=== PATIENT | female | born 1950 | race African-American/Black ===

== ENCOUNTER 2018-08-22 10:56 | Outpatient (CLI) | payer MEDICARE ==
[~2018-08-22] VITALS: Ht 170.2 cm; Wt 65.3 kg
[2018-08-22 14:42] VITALS: BP 109/70
[2018-08-22] MEDS ORDERED: JANUMET 50-5001 EACH ORAL (15:31)
--- NOTE | 2018-08-22 18:30 | Consultation ---
DATE OF CONSULTATION: 08/22/2018 CONSULTING PHYSICIAN: Abdiaziz Lazar M.D. CHIEF COMPLAINT: Painless jaundice. HISTORY OF PRESENT ILLNESS: This is a very pleasant 68-year-old female, presented with the complaint of weakness, weight loss, and jaundice. She had an MRCP done, which showed no evidence of biliary duct dilatation. Ultrasound also showed no evidence of biliary duct dilatation. Hepatitis panel has been negative. The patient was referred to us for ERCP or endoscopic ultrasound. PAST MEDICAL HISTORY: Diabetes. PAST SURGICAL HISTORY: Right fallopian tube removal. MEDICATIONS: Januvia. ALLERGIES: No known drug allergies. MEDICATIONS: Please see medication reconciliation list. FAMILY HISTORY: No family history of malignancy. SOCIAL HISTORY: Denies any tobacco, alcohol, or drug abuse. PHYSICAL EXAMINATION: VITAL SIGNS: Temperature 98.2, pulse is 98, respiration , and blood pressure is 109/70. HEENT: Normocephalic and atraumatic. Scleral icterus. NECK: Supple. No obvious evidence of lymphadenopathy. CARDIOVASCULAR: Regular rate and rhythm. Plus S1 and S2. LUNGS: Decreased breath sounds bilaterally based on supine exam. ABDOMEN: Soft and nontender. No rebound. No guarding. No peritoneal sign. EXTREMITIES: No cyanosis. No clubbing. No edema. LABORATORY DATA: AST is 816, ALT of 1017, and alkaline phosphatase 228. Total bilirubin is 19.4. ASSESSMENT AND PLAN: This is a 68-year-old female with fatigue, jaundice, and abnormal liver function tests, highly suspicious for autoimmune hepatitis. Plan to order YEYO, IgG, SMA and we will order liver biopsy. The patient to come back right after the for treatment. I want to thank, Dr. Chris Boss your kind referral. Abdiaziz Lazar M.D. DR: WES JOB#: [id number] CC:
== END 2018-08-22 11:26 | disposition home or self-care (01) ==
LOC: PAN 10:56
DX: R17 Unspecified jaundice (principal); R53.83 Other fatigue; R94.5 Abnormal results of liver function studies
CPT/HCPCS: 36415; 82784; 86039; 86235; G0463; 99202

== ENCOUNTER 2018-08-30 13:41 | Outpatient (CLI) | payer MEDICARE, BC ==
[~2018-08-30 13:41] MED LIST: JANUMET 50-5001 EACH ORAL
--- NOTE | 2018-08-30 14:19 | General Progress Note ---
Assessment/Plan Assessment/Plan autoimmune hepatitis start prednisone and imuran RTC next week Subjective ROS Limited/Unobtainable: Yes Allergies: Coded Allergies: No Known Allergies (Unverified , 08/22/18) Objective General Appearance: alert EENT: normal ENT inspection, scleral icterus Neck: normal alignment Cardiovascular: normal rate Respiratory/Chest: lungs clear Abdomen: normal bowel sounds, non tender, soft Extremities: non-tender Abdiaziz Lazar MD Aug 30, 2018 14:19
[2018-08-30 15:38] VITALS: BP 105/63
[2018-09-07] MEDS ORDERED: PREDNISONE20 MG ORAL (09:22)
[2018-09-07] MEDS ORDERED: MERCAPTOPURINE50 MG PO (09:22)
== END 2018-08-30 14:11 | disposition home or self-care (01) ==
LOC: PAN 13:41
DX: K75.4 Autoimmune hepatitis (principal)
CPT/HCPCS: 99212

== ENCOUNTER → 2018-09-06 | Outpatient (CLI) | payer MEDICARE, BC ==
[~2018-09-06] MED LIST changes: +MERCAPTOPURINE50 MG PO; +PREDNISONE20 MG ORAL
--- NOTE | 2018-09-06 14:50 | General Progress Note ---
Assessment/Plan Problem List: (1) auto immune hepatitis Assessment/Plan on prednisone and imuran labs pending pathology c/w grade 3/4 fibrosis draw labs today RTC one week Subjective ROS Limited/Unobtainable: Yes Allergies: Coded Allergies: No Known Allergies (Unverified , 08/22/18) Subjective feeling much better Objective General Appearance: alert EENT: normal ENT inspection Neck: supple Cardiovascular: normal rate Respiratory/Chest: lungs clear Abdomen: normal bowel sounds, non tender, soft Extremities: non-tender Abdiaziz Lazar MD Sep 06, 2018 14:50
[2018-09-06 15:51] LABS: BASOPHILS % (AUTO) 0.9 % (0.0-2.0); EOSINOPHILS % (AUTO) 0.1 % (0.0-3.0); HEMATOCRIT 39.7 % (37.0-47.0); HEMOGLOBIN 12.6 G/DL (12.0-16.0); LYMPHOCYTES % (AUTO) 17.2 % (20.0-45.0); MEAN CORPUSCULAR VOLUME 94 FL (80-99); MONOCYTES % (AUTO) 3.3 % (1.0-10.0); NEUTROPHILS % (AUTO) 78.5 % (45.0-75.0); PLATELET COUNT 251 K/UL (150-450); RED BLOOD COUNT 4.24 M/UL (4.20-5.40); WHITE BLOOD COUNT 6.3 K/UL (4.8-10.8)
[2018-09-06 15:59] LABS: ALANINE AMINOTRANSFERASE 150 U/L (12-78); ALBUMIN/GLOBULIN RATIO 0.7 (1.0-2.7); ALKALINE PHOSPHATASE 336 U/L (46-116); ANION GAP 15 mmol/L (5-15); ASPARTATE AMINO TRANSFERASE 76 U/L (15-37); BILIRUBIN,TOTAL 5.5 MG/DL (0.2-1.0); BLOOD UREA NITROGEN 16 mg/dL (7-18); CALCIUM 9.3 MG/DL (8.5-10.1); CARBON DIOXIDE 23 MMOL/L (21-32); CHLORIDE 91 MMOL/L (98-107); CREATININE 1.2 MG/DL (0.55-1.30); POTASSIUM 5.5 MMOL/L (3.5-5.1); SODIUM 128 MMOL/L (136-145)
[2018-09-06 16:03] LABS: BILIRUBIN,DIRECT 4.7 MG/DL (0.0-0.3)
[2018-09-07 09:17] VITALS: BP 113/84
--- NOTE | 2018-09-07 09:20 | NUR ---
on lab result critical value Glucose 544. Dr Lazar was reported on 09/06/18 and pt was notified by Dr Lazar. Pt went to ER for further evaluation Addendum: 09/07/18 at 0921 by RIC PANTOJA Amended: Links added.
== END | disposition home or self-care (01) ==
LOC: PAN 13:16
DX: K75.4 Autoimmune hepatitis (principal); E11.9 Type 2 diabetes mellitus without complications
CPT/HCPCS: 36415; 80053; 82248; 85025; G0463; 99212

== ENCOUNTER 2018-09-13 13:35 | Outpatient (CLI) | payer MEDICARE, BC ==
--- NOTE | 2018-09-13 13:48 | General Progress Note ---
Assessment/Plan Problem List: (1) auto immune hepatitis (2) Gallstones ICD Codes: K80.20 - Calculus of gallbladder without cholecystitis without obstruction SNOMED: 599568455 (3) DM (diabetes mellitus) ICD Codes: E11.9 - Type 2 diabetes mellitus without complications SNOMED: 01448255 Assessment/Plan labs reviewed DM control per PMD [place] labs today RTC next week Subjective ROS Limited/Unobtainable: Yes Allergies: Coded Allergies: No Known Allergies (Unverified , 08/22/18) Objective General Appearance: alert EENT: normal ENT inspection, scleral icterus Neck: supple Cardiovascular: normal rate Respiratory/Chest: lungs clear Abdomen: normal bowel sounds, non tender, soft Extremities: non-tender Abdiaziz Lazar MD Sep 13, 2018 13:48
== END 2018-09-13 15:35 | disposition home or self-care (01) ==
LOC: PAN 13:35
DX: K80.20 Calculus of gallbladder without cholecystitis without obstruction (principal); E11.9 Type 2 diabetes mellitus without complications; K75.4 Autoimmune hepatitis
CPT/HCPCS: G0463

== ENCOUNTER 2018-09-20 13:06 | Outpatient (CLI) | payer MEDICARE, BC ==
--- NOTE | 2018-09-20 13:55 | General Progress Note ---
Assessment/Plan Problem List: (1) auto immune hepatitis (2) Gallstones ICD Codes: K80.20 - Calculus of gallbladder without cholecystitis without obstruction SNOMED: 546340234 (3) AIHA (autoimmune hemolytic anemia) ICD Codes: D59.1 - Other autoimmune hemolytic anemias SNOMED: 598067262 (4) DM (diabetes mellitus) ICD Codes: E11.9 - Type 2 diabetes mellitus without complications SNOMED: 08795459 Assessment/Plan prednisone 20 to 10 starting tomorrow cont Imuran RTC in 2 weeks for blood draw Subjective ROS Limited/Unobtainable: Yes Allergies: Coded Allergies: No Known Allergies (Unverified , 08/22/18) Objective General Appearance: alert EENT: scleral icterus Neck: supple Cardiovascular: normal rate Respiratory/Chest: lungs clear Abdomen: normal bowel sounds, non tender, soft Extremities: non-tender Abdiaziz Lazar MD Sep 20, 2018 13:55
[2018-09-20 15:56] VITALS: BP 124/83
[2018-09-20] MEDS ORDERED: JANUMET 50-1,01 EACH ORAL (15:56)
== END 2018-09-20 15:06 | disposition home or self-care (01) ==
LOC: PAN 13:06
DX: K75.4 Autoimmune hepatitis (principal); K80.20 Calculus of gallbladder without cholecystitis without obstruction; D59.1 Other autoimmune hemolytic anemias; E11.9 Type 2 diabetes mellitus without complications
CPT/HCPCS: G0463

== ENCOUNTER 2018-10-04 12:57 | Outpatient (CLI) | payer MEDICARE, BC ==
[~2018-10-04 12:57] MED LIST changes: +JANUMET 50-1,01 EACH ORAL
--- NOTE | 2018-10-04 13:13 | General Progress Note ---
Assessment/Plan Problem List: (1) auto immune hepatitis (2) DM (diabetes mellitus) ICD Codes: E11.9 - Type 2 diabetes mellitus without complications SNOMED: 85529762 (3) Gallstones ICD Codes: K80.20 - Calculus of gallbladder without cholecystitis without obstruction SNOMED: 866922530 (4) AIHA (autoimmune hemolytic anemia) ICD Codes: D59.1 - Other autoimmune hemolytic anemias SNOMED: 235615950 Assessment/Plan off prednisone labs reviewed repeat labs RTC 2 weeks Subjective ROS Limited/Unobtainable: Yes Allergies: Coded Allergies: No Known Allergies (Unverified , 08/22/18) Subjective feeling great Objective General Appearance: alert EENT: normal ENT inspection Neck: supple Cardiovascular: normal rate Respiratory/Chest: lungs clear Abdomen: normal bowel sounds, non tender, soft, hypoactive bowel sounds Extremities: non-tender Abdiaziz Lazar MD Oct 04, 2018 13:13
== END 2018-10-04 14:57 | disposition home or self-care (01) ==
LOC: PAN 12:57
DX: K80.20 Calculus of gallbladder without cholecystitis without obstruction (principal); D59.1 Other autoimmune hemolytic anemias; E11.9 Type 2 diabetes mellitus without complications; K75.4 Autoimmune hepatitis
CPT/HCPCS: 99212

== ENCOUNTER 2018-11-08 13:44 | Outpatient (CLI) | payer MEDICARE, BC ==
[2018-11-08 14:00] VITALS: BP 107/76
--- NOTE | 2018-11-08 14:16 | General Progress Note ---
Assessment/Plan Problem List: (1) Gallstones ICD Codes: K80.20 - Calculus of gallbladder without cholecystitis without obstruction SNOMED: 656989920 (2) AIHA (autoimmune hemolytic anemia) ICD Codes: D59.1 - Other autoimmune hemolytic anemias SNOMED: 274698093 (3) DM (diabetes mellitus) ICD Codes: E11.9 - Type 2 diabetes mellitus without complications SNOMED: 92927414 (4) auto immune hepatitis Assessment/Plan: cont imuran 50 mg plan EGD and colonoscopy for 11/30/2018 Subjective ROS Limited/Unobtainable: Yes Allergies: Coded Allergies: No Known Allergies (Unverified , 08/22/18) Objective General Appearance: alert EENT: normal ENT inspection Neck: supple Cardiovascular: normal rate Respiratory/Chest: lungs clear Abdomen: normal bowel sounds, non tender, soft Extremities: non-tender Abdiaziz Lazar MD November 08, 2018 14:16
== END 2018-11-08 15:44 | disposition home or self-care (01) ==
LOC: PAN 13:44
DX: K80.20 Calculus of gallbladder without cholecystitis without obstruction (principal); D59.1 Other autoimmune hemolytic anemias; E11.9 Type 2 diabetes mellitus without complications; K75.4 Autoimmune hepatitis

== ENCOUNTER 2019-01-01 09:24 | Day surgery (SDC) | payer MEDICARE, BC ==
--- NOTE | 2018-11-20 09:18 | Anethesia Preoperative Eval ---
Anesthesia Pre-op PMH/ROS General Date of Evaluation: November 20, 2018 Time of Evaluation: 09:15 Anesthesiologist: leisa ASA Score: ASA 3 Mallampati Score Class I : Soft palate, uvula, fauces, pillars visible Class II: Soft palate, uvula, fauces visible Class III: Soft palate, base of uvula visible Class IV: Only hard plate visible Mallampati Classification: Class II Surgeon: rossana Diagnosis: gerd Surgical Procedure: egd/colonoscopy Anesthesia History: none Social History: smoking - nonsmoker Family History: no anesthesia problems Allergies: Coded Allergies: No Known Allergies (Unverified , 08/22/18) Medications: see eMAR Patient NPO?: Yes Past Medical History Gastrointestinal/Genitourinary: Reports: other - gallstones, hepatitis, cirrhosis Endocrine: Reports: DM Hematology/Immune: Reports: anemia - auto immune hemolytic anemia, other Anesthesia Pre-op A/P Risk Assessment & Plan Assessment: asa3 Plan: Mell Green MD November 20, 2018 09:18
[2019-01-01] VITALS (8 sets, daily range): BP systolic 107–116; BP diastolic 58–82
[~2019-01-01] VITALS: Ht 170.2 cm; Wt 60.8 kg
[~2019-01-01 09:24] MED LIST changes: +Atropine Inj 1mg/10ml Syr IV PRN; +DiphenhydrAMINE 50mg/ml Inj IVP PRN; +Midazolam 2mg/2ml Inj IVP PRN; +fentaNYL 100 mcg/2 mL IV PRN
[2019-01-01] MEDS ORDERED: fentaNYL 100 mcg/2 mL IV ONE ×2 (09:25→12:00)
[2019-01-01] MEDS ORDERED: Midazolam 2mg/2ml Inj ONE ×2 (09:25→12:00)
[2019-01-01] MEDS ORDERED: AZATHIOPRINE50 MG PO (09:59)
[2019-01-01] MEDS ORDERED: LISINOPRIL5 MG ORAL (09:59)
--- NOTE | 2019-01-01 10:19 | Short Stay Surgery H&P ---
History of Present Illness History of Present Illness Chief Complaint see office note HPI Li Quiroz is a 68 year old female who was admitted on for Gerd,Cirrhosis, Abdominal Pain Patient History Allergies: Coded Allergies: No Known Allergies (Unverified , 08/22/18) Medication History Scheduled Azathioprine* (Imuran*), 50 MG PO DAILY, (Reported) Lisinopril (Lisinopril*), 5 MG ORAL DAILY, (Reported) Sitagliptin Phos/Metformin Hcl (Janumet 50-1,000 Mg Tablet), 1 TAB ORAL TWICE A DAY, (Reported) Discontinued Medications Mercaptopurine (Mercaptopurine), 50 MG PO DAILY, (Reported) Discontinued Reason: Pt stopped taking med Physical Exam Vital Signs Last Vital Signs Date Time Temp Pulse Resp B/P (MAP) Pulse Ox O2 Delivery O2 Flow Rate FiO2 01/01/19 09:59 97.4 69 18 109/64 100 Room Air Plan Attestation Are the patient's medical conditions optimized for surgery? Abdiaziz Lazar MD Jan 01, 2019 10:19
--- NOTE | 2019-01-01 10:19 | Pre-Procedure Note/Attestation ---
Pre-Procedure Note/Attestation Complete Prior to Procedure Planned Procedure: not applicable Procedure Narrative: esophagogastroduodenoscopy and colonoscopy Indications for Procedure Pre-Operative Diagnosis: screening colon, GERD Attestation I attest that I discussed the nature of the procedure; its benefits; risks and complications; and alternatives (and the risks and benefits of such alternatives ), prior to the procedure, with the patient (or the patient's legal sales representative door to door). I attest that, if there was a reasonable possibility of needing a blood transfusion, the patient (or the patient's legal sales representative door to door) was given the [facility] standardized written summary, pursuant to the [place] Blood Safety Act ([place] Health and Safety Code # 1645, as amended). I attest that I re-evaluated the patient just prior to the surgery and that there has been no change in the patient's H&P, except as documented below: Abdiaziz Lazar MD Jan 01, 2019 10:19
[2019-01-01 10:49] LABS: BASOPHILS % (AUTO) 2.6 % (0.0-2.0); EOSINOPHILS % (AUTO) 2.4 % (0.0-3.0); HEMATOCRIT 44.9 % (37.0-47.0); HEMOGLOBIN 14.9 G/DL (12.0-16.0); LYMPHOCYTES % (AUTO) 46.5 % (20.0-45.0); MEAN CORPUSCULAR VOLUME 96 FL (80-99); MONOCYTES % (AUTO) 9.8 % (1.0-10.0); NEUTROPHILS % (AUTO) 38.7 % (45.0-75.0); PLATELET COUNT 207 K/UL (150-450); RED BLOOD COUNT 4.68 M/UL (4.20-5.40); RED CELL DISTRIBUTION WIDTH 11.5 % (11.6-14.8); WHITE BLOOD COUNT 3.6 K/UL (4.8-10.8)
[2019-01-01 11:08] LABS: ALANINE AMINOTRANSFERASE 38 U/L (12-78); ALBUMIN 4.2 G/DL (3.4-5.0); ALKALINE PHOSPHATASE 81 U/L (46-116); ANION GAP 14 mmol/L (5-15); ASPARTATE AMINO TRANSFERASE 39 U/L (15-37); BILIRUBIN,TOTAL 0.6 MG/DL (0.2-1.0); BLOOD UREA NITROGEN 13 mg/dL (7-18); CALCIUM 10.1 MG/DL (8.5-10.1); CARBON DIOXIDE 23 MMOL/L (21-32); CHLORIDE 107 MMOL/L (98-107); POTASSIUM 4.3 MMOL/L (3.5-5.1); SODIUM 144 MMOL/L (136-145)
--- NOTE | 2019-01-01 11:44 | Anethesia Preoperative Eval ---
Anesthesia Pre-op PMH/ROS General Date of Evaluation: Jan 01, 2019 Time of Evaluation: 11:15 Anesthesiologist: Clementine ASA Score: ASA 2 Mallampati Score Class I : Soft palate, uvula, fauces, pillars visible Class II: Soft palate, uvula, fauces visible Class III: Soft palate, base of uvula visible Class IV: Only hard plate visible Mallampati Classification: Class II Surgeon: Cady Diagnosis: Abdominal pain Surgical Procedure: EGD Colonoscopy Anesthesia History: none Family History: no anesthesia problems Allergies: Coded Allergies: No Known Allergies (Unverified , 08/22/18) Patient NPO?: Yes Past Medical History Cardiovascular: Reports: HTN; Denies: CAD, VA, valve dz, arrhythmia, other Pulmonary: Denies: asthma, COPD, GONZALO, other Gastrointestinal/Genitourinary: Reports: other - Autoimmunen hepatitis, cirrosis; Denies: GERD, CRI, ESRD Neurologic/Psychiatric: Reports: depression/anxiety; Denies: dementia, CVA, TIA, other Endocrine: Reports: DM - stable on pills; Denies: hypothyroidism, steroids, other HEENT: Denies: cataract (L), cataract (R), glaucoma, TANGIRNAQ (L), TANGIRNAQ (R), other Hematology/Immune: Denies: anemia, DVT, bleeding disorder, other Musculoskeletal/Integumentary: Reports: DJD; Denies: OA, RA, DDD, edema, other PMH Narrative: as above PSxH Narrative: see H&P Anesthesia Pre-op Phys. Exam Physician Exam Last Vital Signs Date Time Temp Pulse Resp B/P (MAP) Pulse Ox O2 Delivery O2 Flow Rate FiO2 01/01/19 10:31 Room Air 01/01/19 09:59 97.4 69 18 109/64 100 Constitutional: NAD Neurologic: CN 2-12 intact Cardiovascular: RRR, no M/R/G Respiratory: CTA Gastrointestinal: S/NT/ND Airway Exam Mallampati Score: Class II MO: limited Neck: stiff ROM: limited Teeth: missing Dentures: no upper, no lower Anesthesia Pre-op A/P Labs Hematology Test 01/01/19 10:27 White Blood Count 3.6 K/UL (4.8-10.8) L Red Blood Count 4.68 M/UL (4.20-5.40) Hemoglobin 14.9 G/DL (12.0-16.0) Hematocrit 44.9 % (37.0-47.0) Mean Corpuscular Volume 96 FL (80-99) Mean Corpuscular Hemoglobin 31.8 PG (27.0-31.0) H Mean Corpuscular Hemoglobin Concent 33.1 G/DL (32.0-36.0) Red Cell Distribution Width 11.5 % (11.6-14.8) L Platelet Count 207 K/UL (150-450) Mean Platelet Volume 6.4 FL (6.5-10.1) L Neutrophils (%) (Auto) 38.7 % (45.0-75.0) L Lymphocytes (%) (Auto) 46.5 % (20.0-45.0) H Monocytes (%) (Auto) 9.8 % (1.0-10.0) Eosinophils (%) (Auto) 2.4 % (0.0-3.0) Basophils (%) (Auto) 2.6 % (0.0-2.0) H Chemistry Test 01/01/19 10:27 Sodium Level 144 MMOL/L (136-145) Potassium Level 4.3 MMOL/L (3.5-5.1) Chloride Level 107 MMOL/L (98-107) Carbon Dioxide Level 23 MMOL/L (21-32) Anion Gap 14 mmol/L (5-15) Blood Urea Nitrogen 13 mg/dL (7-18) Creatinine 1.0 MG/DL (0.55-1.30) Estimat Glomerular Filtration Rate > 60 mL/min (>60) Glucose Level 131 MG/DL (74-106) H Hemoglobin A1c Pending Calcium Level 10.1 MG/DL (8.5-10.1) Total Bilirubin 0.6 MG/DL (0.2-1.0) Aspartate Amino Transf (AST/SGOT) 39 U/L (15-37) H Alanine Aminotransferase (ALT/SGPT) 38 U/L (12-78) Alkaline Phosphatase 81 U/L (46-116) Total Protein 8.6 G/DL (6.4-8.2) H Albumin 4.2 G/DL (3.4-5.0) Globulin 4.4 g/dL Albumin/Globulin Ratio 1.0 (1.0-2.7) Studies Pre-op Studies: EKG Risk Assessment & Plan Assessment: ASA 2 Plan: MAC Status Change Before Surgery: No Adán Spring MD Jan 01, 2019 11:44
[2019-01-01] MEDS ORDERED: fentaNYL 100 mcg/2 mL IV PRN (11:45)
[2019-01-01] MEDS ORDERED: Propofol 200mg/20ml IV ONE (12:00)
--- NOTE | 2019-01-01 12:02 | Endoscopy Procedure Note ---
Endoscopy Procedure Note General Indication for Procedure: screening colon, GERD Procedures Performed: EGD, colonoscopy Operative Findings/Diagnosis: large colon polyp Specimen: yes Pt Tolerated Procedure Well: Yes Estimated Blood Loss: none Anesthesia Anesthesiologist: natasha Anesthesia: MAC Inserted Devices Implant(s) used?: No Quality Quality of Bowel Preparation: Good Did scope reach the cecum?: Yes Was there any complications?: No GI Core Measures 50 yrs or older w/o bx or poly: No 10yrs. F/U recommended: Yes If not recommended, why?: Above average risk 18 years or older w/prev. colo: No Abdiaziz Lazar MD Jan 01, 2019 12:02
--- NOTE | 2019-01-01 12:07 | Immediate Post-Op Evaluation ---
Immediate Post-Op Evalulation Immediate Post-Op Evalulation Procedure: EGD Colonoscopy polipectomy Date of Evaluation: Jan 01, 2019 Time of Evaluation: 12:06 IV Fluids: 800 Blood Products: none Estimated Blood Loss: none Urinary Output: none Blood Pressure Systolic: 116 Blood Pressure Diastolic: 68 Pulse Rate: 78 Respiratory Rate: 20 O2 Sat by Pulse Oximetry: 98 Temperature (Fahrenheit): 97.8 Pain Score (1-10): 1 Nausea: No Vomiting: No Complications none Patient Status: reacts, patent, none Hydration Status: adequate Adán Spring MD Jan 01, 2019 12:07
--- NOTE | 2019-01-01 12:45 | 48 Hour Post Anesthesia Eval ---
Post Anesthesia Evaluation Procedure: EGD Colonoscopy polipectomy Date of Evaluation: Jan 01, 2019 Time of Evaluation: 12:45 Blood Pressure Systolic: 116 0: 72 Pulse Rate: 68 Respiratory Rate: 20 Temperature (Fahrenheit): 97.6 O2 Sat by Pulse Oximetry: 98 Airway: patent Nausea: No Vomiting: No Pain Intensity: 1 Hydration Status: adequate Cardiopulmonary Status: stable Mental Status/LOC: patient returned to baseline Follow-up Care/Observations: n/a Post-Anesthesia Complications: none Follow-up care needed: ready to discharge Adán Spring MD Jan 01, 2019 12:45
--- NOTE | 2019-01-01 22:00 | Procedure Note ---
DATE OF PROCEDURE: 01/01/2019 SURGEON: Abdiaziz Lazar M.D. PROCEDURES: Upper endoscopy with biopsy and colonoscopy with snare polypectomy, tattooing, and hemostasis. ANESTHESIA: Per Dr. Adán Spring. INSTRUMENT: Olympus adult flexible colonoscope and upper endoscope. INDICATION: Screening colonoscopy evaluation, history of liver disease, questionable cirrhosis, esophageal varices. REASON FOR PROCEDURE: The procedure, risks, benefits, and possible consequences, including hemorrhage, aspiration, perforation and infection, and alternative treatments, were explained to the patient/legal guardian by Dr. Abdiaziz Lazar and the patient/legal guardian understood and accepted these risks. PROCEDURE IN DETAIL: After informed consent was obtained and the patient was adequately sedated, Olympus upper endoscope was advanced from the mouth into the second portion of duodenum and retroflexion was performed in the stomach. There was a little bit of narrowing at the GE junction. Passage of the scope just opened it up a little bit and caused her minimum tear with bleeding. Possibly a Schatzki's ring, but not 100% classical for Schatzki's ring. In the stomach, there was no evidence of diffuse gastritis. Random biopsy from antrum and body was obtained to rule out H. pylori infection. The rest of the upper endoscopic examination was grossly within limits. At this time, the upper endoscope was retrieved and the patient was turned over for colonoscopy. First, rectal exam was performed, which was positive for internal hemorrhoids. Then, the scope was advanced from the rectum into the cecum documented by appendiceal orifice, ileocecal valve, and right upper quadrant palpation. Quality of the prep was very good. In the cecum, there was evidence of a sessile 1.3 cm polyp in the cecum. This polyp was removed with piecemeal fashion. After the polyp was removed, there was no obvious perforation, but there was a little bit of visibility of the submucosa, so we decided to put the plate. One clip was successfully placed. We also tattooed this area with the Sharron ink. At this time, we used the Carnes Net to remove the big piece or big polyp. There was evidence of scattered diverticulosis. No obvious diverticulitis. In the rectum, there was evidence of internal hemorrhoids on retroflexion. The patient tolerated the procedure very well without any complication. SUMMARY OF FINDINGS: 1. Questionable Schatzki's ring which opened up with the passage of this colon and causing a minimum tear. 2. Gastritis, status post biopsy. 3. Large polyp from the cecum removed. See above for detail and also this polyp was tattooed. 4. Scattered diverticulosis. 5. Internal hemorrhoids. RECOMMENDATIONS: Follow pathology. Depending on the path, we will recommend colonoscopy no later than 3 years. We will also follow up biopsy results from the stomach and treat accordingly. Abdiaziz Lazar M.D. DR: PACO JOB#: [id number] CC:
--- NOTE | 2019-01-03 16:13 | Cardiology Report ---
APPROVED REPORT EKG Measurement Heart [id number] VT 120P63 [id number] Normal sinus rhythm Normal ECG
== END 2019-01-01 12:55 | disposition home or self-care (01) ==
LOC: GAS 09:24
DX: Z12.11 Encounter for screening for malignant neoplasm of colon (principal); K29.70 Gastritis, unspecified, without bleeding; B96.81 Helicobacter pylori [H. pylori] as the cause of diseases classified elsewhere; D12.0 Benign neoplasm of cecum; K64.8 Other hemorrhoids; K57.90 Diverticulosis of intestine, part unspecified, without perforation or abscess without bleeding; K63.5 Polyp of colon; K21.9 Gastro-esophageal reflux disease without esophagitis; Z79.899 Other long term (current) drug therapy; I10 Essential (primary) hypertension; E11.9 Type 2 diabetes mellitus without complications; F32.9 Major depressive disorder, single episode, unspecified; F41.9 Anxiety disorder, unspecified; M19.90 Unspecified osteoarthritis, unspecified site; K74.60 Unspecified cirrhosis of liver
CPT/HCPCS: 36415; 43239; 45381; 45382; 45385; 80053; 82962; 83036; 85025; 93005; J2250; J2704; J3010; 94003; 94150

== ENCOUNTER 2019-02-01 13:22 | Outpatient (CLI) | payer MEDICARE, BC ==
[~2019-02-01 13:22] MED LIST changes: +AZATHIOPRINE50 MG PO; -Atropine Inj 1mg/10ml Syr IV PRN; -DiphenhydrAMINE 50mg/ml Inj IVP PRN; +LISINOPRIL5 MG ORAL; -Midazolam 2mg/2ml Inj IVP PRN; -fentaNYL 100 mcg/2 mL IV PRN
--- NOTE | 2019-02-01 14:32 | General Progress Note ---
Assessment/Plan Problem List: (1) Colon polyps ICD Codes: K63.5 - Polyp of colon SNOMED: 99854961 (2) Gastritis ICD Codes: K29.70 - Gastritis, unspecified, without bleeding SNOMED: 6241563 (3) auto immune hepatitis (4) DM (diabetes mellitus) ICD Codes: E11.9 - Type 2 diabetes mellitus without complications SNOMED: 91944302 (5) Gallstones ICD Codes: K80.20 - Calculus of gallbladder without cholecystitis without obstruction SNOMED: 679830063 (6) AIHA (autoimmune hemolytic anemia) ICD Codes: D59.1 - Other autoimmune hemolytic anemias SNOMED: 431428334 Assessment/Plan: treat for HP RTC 3 months cont imuran repeat colon 3 years Subjective ROS Limited/Unobtainable: Yes Allergies: Coded Allergies: No Known Allergies (Unverified , 08/22/18) Objective General Appearance: alert EENT: normal ENT inspection Neck: supple Cardiovascular: normal rate Respiratory/Chest: decreased breath sounds Abdomen: normal bowel sounds, non tender, soft Extremities: non-tender Abdiaziz Lazar MD Feb 01, 2019 14:32
== END 2019-02-01 15:22 | disposition home or self-care (01) ==
LOC: PAN 13:22
DX: K63.5 Polyp of colon (principal); K29.70 Gastritis, unspecified, without bleeding; E11.9 Type 2 diabetes mellitus without complications; K80.20 Calculus of gallbladder without cholecystitis without obstruction; D59.1 Other autoimmune hemolytic anemias; K75.4 Autoimmune hepatitis
CPT/HCPCS: 99212

== ENCOUNTER 2019-05-23 13:10 | Outpatient (CLI) | payer MEDICARE, BC ==
--- NOTE | 2019-05-23 15:01 | General Progress Note ---
Assessment/Plan Assessment/Plan: Assessment/Plan Problem List: (1) Colon polyps ICD Codes: K63.5 - Polyp of colon SNOMED: 98695011 (2) Gastritis ICD Codes: K29.70 - Gastritis, unspecified, without bleeding SNOMED: 6116157 (3) auto immune hepatitis (4) DM (diabetes mellitus) ICD Codes: E11.9 - Type 2 diabetes mellitus without complications SNOMED: 87660857 (5) Gallstones ICD Codes: K80.20 - Calculus of gallbladder without cholecystitis without obstruction SNOMED: 323001686 (6) AIHA (autoimmune hemolytic anemia) ICD Codes: D59.1 - Other autoimmune hemolytic anemias SNOMED: 317304145 Assessment/Plan: RTC 3 months cont imuran repeat colon 3 years Subjective ROS Limited/Unobtainable: Yes Allergies: Coded Allergies: No Known Allergies (Unverified , 08/22/18) Objective General Appearance: alert EENT: normal ENT inspection Neck: supple Cardiovascular: normal rate Respiratory/Chest: lungs clear Abdomen: normal bowel sounds, non tender, soft Extremities: non-tender Abdiaziz Lazar MD May 23, 2019 15:01
[2019-05-23 15:39] VITALS: BP 111/61
== END 2019-05-23 15:10 | disposition home or self-care (01) ==
LOC: PAN 13:10
DX: K63.5 Polyp of colon (principal); K29.70 Gastritis, unspecified, without bleeding; E11.9 Type 2 diabetes mellitus without complications; K80.20 Calculus of gallbladder without cholecystitis without obstruction; D59.1 Other autoimmune hemolytic anemias; K75.4 Autoimmune hepatitis
CPT/HCPCS: 99212

== ENCOUNTER 2019-09-19 11:51 | Outpatient (CLI) | payer MEDICARE, BC ==
[2019-09-19] MEDS ORDERED: METFORMIN HCL500 M1 ORAL (12:03)
[2019-09-19 12:08] VITALS: BP 113/78
--- NOTE | 2019-09-19 13:18 | General Progress Note ---
Assessment/Plan Assessment/Plan: Assessment/Plan Problem List: (1) Colon polyps ICD Codes: K63.5 - Polyp of colon SNOMED: 24903201 (2) Gastritis ICD Codes: K29.70 - Gastritis, unspecified, without bleeding SNOMED: 3931390 (3) auto immune hepatitis (4) DM (diabetes mellitus) ICD Codes: E11.9 - Type 2 diabetes mellitus without complications SNOMED: 59144475 (5) Gallstones ICD Codes: K80.20 - Calculus of gallbladder without cholecystitis without obstruction SNOMED: 249303739 (6) AIHA (autoimmune hemolytic anemia) ICD Codes: D59.1 - Other autoimmune hemolytic anemias SNOMED: 073296726 Assessment/Plan: RTC 1 months cont imuran>>> patient wants to reduce it by half repeat colon 3 years Subjective ROS Limited/Unobtainable: Yes Allergies: Coded Allergies: No Known Allergies (Unverified , 08/22/18) Objective Last 24 Hour Vital Signs Date Time Temp Pulse Resp B/P (MAP) Pulse Ox O2 Delivery O2 Flow Rate FiO2 09/19/19 12:08 97.6 64 16 113/78 (90) 96 General Appearance: alert EENT: normal ENT inspection Neck: supple Cardiovascular: normal rate Respiratory/Chest: decreased breath sounds Abdomen: normal bowel sounds, non tender, soft Extremities: non-tender Abdiaziz Lazar MD Sep 19, 2019 13:18
== END 2019-09-19 15:52 | disposition home or self-care (01) ==
LOC: PAN 11:51
DX: K63.5 Polyp of colon (principal); K29.70 Gastritis, unspecified, without bleeding; E11.9 Type 2 diabetes mellitus without complications; K80.20 Calculus of gallbladder without cholecystitis without obstruction; D59.1 Other autoimmune hemolytic anemias; K75.4 Autoimmune hepatitis
CPT/HCPCS: 99212

== ENCOUNTER 2020-01-30 13:09 | Outpatient (CLI) | payer MEDICARE, BC ==
[~2020-01-30 13:09] MED LIST changes: +METFORMIN HCL500 M1 ORAL
[2020-01-30 13:29] VITALS: BP 107/62
== END 2020-01-30 15:09 | disposition home or self-care (01) ==
LOC: PAN 13:09
DX: R10.9 Unspecified abdominal pain (principal)
CPT/HCPCS: 99212

== ENCOUNTER 2020-04-22 11:26 | Outpatient (CLI) | payer MEDICARE, BC ==
[2020-04-22 11:43] VITALS: BP 120/71
[2020-04-22] MEDS ORDERED: AZASAN100 MG PO (11:46)
--- NOTE | 2020-04-23 13:01 | General Progress Note ---
Subjective ROS Limited/Unobtainable: Yes Allergies: Coded Allergies: No Known Allergies (Unverified , 08/22/18) Objective General Appearance: alert EENT: normal ENT inspection Neck: supple Cardiovascular: normal rate Respiratory/Chest: lungs clear Abdomen: normal bowel sounds, non tender, soft Extremities: non-tender Assessment/Plan Problem List: (1) AIHA (autoimmune hemolytic anemia) ICD Codes: D59.1 - Other autoimmune hemolytic anemias SNOMED: 491572919 (2) Gastritis ICD Codes: K29.70 - Gastritis, unspecified, without bleeding SNOMED: 6062834 (3) Gallstones ICD Codes: K80.20 - Calculus of gallbladder without cholecystitis without obstruction SNOMED: 528226523 (4) DM (diabetes mellitus) ICD Codes: E11.9 - Type 2 diabetes mellitus without complications SNOMED: 65506154 (5) Colon polyps ICD Codes: K63.5 - Polyp of colon SNOMED: 74925852 (6) auto immune hepatitis Assessment/Plan: labs from the last month draw reviewed patient wants to stop the imuran but agreed to cut in half, 25 mg daily RTC 2 months repeat labs next month Abdiaziz Lazar MD Apr 23, 2020 13:01
== END 2020-04-22 13:26 | disposition home or self-care (01) ==
LOC: PAN 11:26
DX: K29.70 Gastritis, unspecified, without bleeding (principal); D59.10 Autoimmune hemolytic anemia, unspecified; K80.20 Calculus of gallbladder without cholecystitis without obstruction; E11.9 Type 2 diabetes mellitus without complications; K63.5 Polyp of colon; K75.4 Autoimmune hepatitis
CPT/HCPCS: 99212

== ENCOUNTER 2020-07-16 12:08 | Outpatient (CLI) | payer MEDICARE, BC ==
[~2020-07-16 12:08] MED LIST changes: +AZASAN100 MG PO
--- NOTE | 2020-07-16 13:54 | General Progress Note ---
Subjective ROS Limited/Unobtainable: Yes Allergies: Coded Allergies: No Known Allergies (Unverified , 08/22/18) Subjective c/o weight loss weakness Objective General Appearance: alert EENT: normal ENT inspection Neck: supple Cardiovascular: normal rate Respiratory/Chest: lungs clear Abdomen: normal bowel sounds, non tender, soft Extremities: non-tender Assessment/Plan Assessment/Plan: Assessment/Plan Problem List: (1) AIHA (autoimmune hemolytic anemia) ICD Codes: D59.1 - Other autoimmune hemolytic anemias SNOMED: 454651301 (2) Gastritis ICD Codes: K29.70 - Gastritis, unspecified, without bleeding SNOMED: 9079980 (3) Gallstones ICD Codes: K80.20 - Calculus of gallbladder without cholecystitis without obstruction SNOMED: 081761999 (4) DM (diabetes mellitus) ICD Codes: E11.9 - Type 2 diabetes mellitus without complications SNOMED: 01134624 (5) Colon polyps ICD Codes: K63.5 - Polyp of colon SNOMED: 71355619 (6) auto immune hepatitis Assessment/Plan: ? COVID ? AIH relapse plan Covid check labs for today Abdiaziz Lazar MD Jul 16, 2020 13:54
== END 2020-07-16 15:30 | disposition home or self-care (01) ==
LOC: PAN 12:08
DX: K29.70 Gastritis, unspecified, without bleeding (principal); D59.10 Autoimmune hemolytic anemia, unspecified; K80.20 Calculus of gallbladder without cholecystitis without obstruction; E11.9 Type 2 diabetes mellitus without complications; K63.5 Polyp of colon; K75.4 Autoimmune hepatitis; R63.4 Abnormal weight loss; R53.1 Weakness
CPT/HCPCS: 99212